=== PATIENT | female | born 1945 | race African-American/Black ===

== ENCOUNTER 2021-04-12 10:53 | Outpatient (CLI) | payer MEDICARE, SELFPAY | END 2021-04-12 10:54 | disposition home or self-care (01) | PROVIDERS: Visit Provider Obstetrics & Gynecology | DX: E04.9 Nontoxic goiter, unspecified (principal) | CPT/HCPCS: 36415; 84436; 84443 ==

== ENCOUNTER → 2021-04-15 14:11 | Outpatient (CLI) | payer MEDICARE, SELFPAY ==
--- NOTE | ~2021-04-15 | US_ITS ---
EXAMINATION: US thyroid DATE: 04/15/2021 14:30 INDICATION: Nontoxic goiter, unspecified. TECHNIQUE: Multiple ultrasound images of the thyroid were obtained. COMPARISON: None. FINDINGS: The right thyroid lobe measures 6.2 x 2.4 x 2.9 cm. The left thyroid lobe measures 5.5 x 1.7 x 1.7 c m. There are multiple nodules in the thyroid. In the right thyroid lobe, there is a 2.1 cm solid, is oechoic, lieaw-iluj-bswq nodule with ill-defined margin without echogenic foci (TI-RADS TR3). In the right thyroid lobe, there is a 1.9 cm predominance solid, hypoechoic, atjdr-fhgz-flmf nodule with ill -defined margin without echogenic foci (TR4). In the right thyroid lobe, there is a 2.4 cm solid, hyp oechoic, qvnrn-muzv-cfos nodule with ill-defined margin without echogenic foci (TR4). In the thyroid isthmus, there is a 1.4 cm solid, hypoechoic, fsaeq-oweb-fmdx nodule with ill-defined margin without echogenic foci (TR4). In the thyroid isthmus, there is a 1.5 cm solid, hypoechoic, xlfvl-zlid-hitr no dule with ill-defined margin without echogenic foci (TR4). IMPRESSION: 1. Multinodular goiter. Given the history of multiple benign biopsies, additional biopsies may not be warranted. Comparison with previous imaging is recommended. Reviewed, dictated and finalized at location A. IMPRESSION: 1. Multinodular goiter. Given the history of multiple benign biopsies, addition al biopsies may not be warranted. Comparison with previous imaging is recommend ed.
== END ==
PROVIDERS: Visit Provider Obstetrics & Gynecology
DX: E04.2 Nontoxic multinodular goiter (principal)
CPT/HCPCS: 76536

== ENCOUNTER → 2021-07-09 12:59 | Outpatient (CLI) | payer MEDICARE, SELFPAY ==
--- NOTE | ~2021-07-09 | DEXA_ITS ---
Bone Density Report Name: KASSI ARRINGTON Age: 76 Sex: Female Ethnicity: Black Date of : 1945 Indication: postmenopausal; screening for osteoporosis; Referring Provider: SAV CERVANTES Study: Bone densitometry was performed. Exam Date: July 09, 2021 Accession number: [id number] Bone Density: Region BMD T-score Z-score Classification AP Spine (L1-L4) 0.996 -0.5 1.2 Normal Femoral Neck (Left) 0.703 -1.3 -0.2 Osteopenia Total Hip (Left) 0.787 -1.3 -0.3 Osteopenia Femoral Neck (Right) 0.640 -1.9 -0.6 Osteopenia Total Hip (Right) 0.747 -1.6 -0.6 Osteopenia Total Hip Mean 0.767 -1.5 -0.5 Osteopenia World Health Organization criteria for BMD impression classify patients as: Normal (T-score at or above -1.0), Osteopenia (T-score between -1.0 and -2.5), or Osteoporosis (T-score at or below -2.5). 10-year Fracture Risk(1): Major Osteoporotic Fracture 12% Hip Fracture 2.8% Reported Risk Factors: [place] (), Neck BMD=0.640, BMI=26.0 (1) FRAX(R) Version 3.08. Fracture probability calculated for an untreated patient. Fracture probability may be lower if the patient has received treatment. Clinical Information Provided by Patient: Patient maximum height was 64.0 Menopause Age: 57 No regular weight bearing exercise Drinks caffeinated beverages Onset of menses at age 18 Number of children 2 Impression: The patient has low bone mass, based on the Right Femoral Neck T-score. The patient has an estimated ten-year risk of hip fracture of 2.8% and an estimated ten-year risk of major fracture of 12%, based on the WHO FRAX algorithm. Discussion: BONE DENSITY IS LOW AT ONE OR MORE SKELETAL SITES. This patient's lowest T-score is low at one or more skeletal sites. It meets the World Health Organization's (WHO) criteria for ?low bone mass? (T-score between -1.0 and -2.5). The patient's 10-year risk of fracture as calculated by FRAX is less than the threshold where pharmacological therapy is recommended by the National Osteoporosis Foundation (NOF). However, all treatment decisions require clinical judgment and consideration of individual patient factors, including patient preferences, comorbidities, previous drug use, risk factors not captured in the FRAX model (e.g., frailty, falls, vitamin D deficiency, increased bone turnover, interval significant decline in bone density) and possible under or overestimation of fracture risk by FRAX. The patient should follow a healthful lifestyle (good nutrition with adequate calcium and vitamin D, and appropriate weight-bearing exercise). Follow-Up: Consider repeating this study in 2 to 3 years to reassess this patient's status, or sooner if there is some new clinical indication. Reported by: CASEY on 07/09/2021 1:30:00 PM.
== END ==
PROVIDERS: Visit Provider Obstetrics & Gynecology
DX: Z78.0 Asymptomatic menopausal state (principal); M85.852 Other specified disorders of bone density and structure, left thigh; M85.851 Other specified disorders of bone density and structure, right thigh
CPT/HCPCS: 77080

== ENCOUNTER → 2021-10-25 09:47 | Outpatient (CLI) | payer MEDICARE, SELFPAY ==
--- NOTE | ~2021-10-25 | MM_ITS ---
EXAMINATION: MM diagnostic sandhya BI w isael HISTORY: Breast pain TECHNIQUE: Additional 3-D tomosynthesis images of the breasts were performed and synthetic 2-D images were generated. CAD analysis was submitted and interpreted. COMPARISON: None BREAST PARENCHYMAL COMPOSITION: The breasts are heterogenously dense, which may obscure small masses FINDINGS: There are no suspicious masses, calcifications or architectural distortion in either breast to suggest malignancy. There are benign vascular calcifications. IMPRESSION: 1. No mammographic evidence for malignancy in either breast. 2. Routine yearly screening mammogram and regular clinical breast examination are recommended. BI-RADS Category 1: Negative Reviewed, dictated and finalized at location A. IMPRESSION: 1. No mammographic evidence for malignancy in either breast. 2. Routine yearly screening mammogram and regular clinical breast examination a re recommended. BI-RADS Category 1: Negative
== END ==
PROVIDERS: PCP Obstetrics & Gynecology; Visit Provider Obstetrics & Gynecology
DX: N64.4 Mastodynia (principal)
CPT/HCPCS: 77062; 77066; G0279

== ENCOUNTER 2022-01-06 01:39 | Day surgery (SDC) | payer MEDICARE, SELFPAY ==
--- NOTE | 2022-01-06 10:43 | WPDANESEPPF ---
Anes - Initial Pre Proc Eval Procedure: Operation Date: 01/06/22 13:30 Proposed Procedures p Screening Colonoscopy - Joe Saxena MD Date/Time: 01/06/22 10:43 Surgeon: Joe Saxena MD Pre Op Diagnosis: neoplasm screening Patient Data Age: 76 Gender: F Height: Weight: Allergies Allergy/AdvReac Type Severity Reaction Status Date / Time Pwqyyhf-DYU-KfR Reductase Allergy Mild epistaxis Verified 01/06/22 11:48 Inhibitor [Qdxogtn-Pby-Qfv Reductase Inhibitor] Home Medications Medication Instructions Recorded Confirmed Type calcium carbonate 600 mg-vitamin 1 tablet PO DAILY 03/21/21 01/06/22 History D3 20 mcg (800 unit) chewable tablet (Caltrate 600 plus D) dupilumab 300 mg/2 mL subcutaneous 300 mg subcut ONCE 03/21/21 01/06/22 History pen injector (Dupixent) hydrocortisone 2.5 % topical cream 1 applic topical BID PRN Dry Skin 03/21/21 01/06/22 History nebivolol 5 mg tablet (Bystolic) 5 mg PO DAILY 03/21/21 01/06/22 History triamcinolone acetonide 0.1 % 1 applic topical DAILY 03/21/21 01/06/22 History topical ointment triamterene 37.5 1 tablet PO QAM 03/21/21 01/06/22 History mg-hydrochlorothiazide 25 mg tablet (Maxzide-25mg) Centrum Silver Ultra Women's 1 tablet BYMOUTH DAILY 12/19/21 01/06/22 History alirocumab 75 mg/mL subcutaneous 75 mg subcut DIRECTED 12/19/21 01/06/22 History pen injector (Praluent Pen) aspirin 81 mg BYMOUTH DAILY 12/19/21 01/06/22 History ezetimibe 10 mg tablet (Zetia) 10 tablet PO DAILY 12/19/21 01/06/22 History lisinopril 10 mg tablet (Zestril) 10 tablet PO HS 12/19/21 01/06/22 History Patient hx anesthesia problems: none Family hx anesthesia problems: none Results Review: All pre-operative results and documents have been reviewed as part of the pre-operative evaluation. [facility] Past Medical History Medical History Acid reflux Allergies Anxiety Bilateral carotid artery stenosis Diverticulosis History of HPV infection Hypertension Thyroid disorder Surgical History Surgical History Hx of tubal ligation Family History Family History Mother Breast cancer Sibling Hypertension Social History Social History Smoking status: Former smoker Alcohol intake: never Substance use: never Substance use type: does not use Living arrangements: with family Spiritual care concerns: No Anes - Eval Final PreProcedure Day of Procedure 01/06/22 10:43 Patient weight: overweight Heart: regular rate and rhythm Lungs: clear to auscultation Airway: Mallampati scale class II Neurological: alert and oriented Last oral intake: >/= 8 hours ASA classification: III Emergent: no Anesthetic plan: proceed Anesthesia type and monitoring: general GIVS and standard monitoring Results Review: All pre-operative results and documents have been reviewed as part of the pre-operative evaluation. Informed Consent: The patient's anesthetic plan and its attendant risks and benefits were discussed with the patient/family/POA. Questions were solicited and answers provided to the satisfaction of the patient/family/POA.
[2022-01-06 11:48] VITALS: BMI 24.4
[2022-01-06 11:49] VITALS: BP 176/64; PULSE 65; RESP 18; TEMP 36.2; O2SAT 100
[2022-01-06] MEDS: LACTATED RINGERS 1,000 ML 150 ML IV CONT (11:51)
--- NOTE | 2022-01-06 12:24 | PM.HPGS ---
History of Present Illness History of Present Illness Consent: Risks, benefits, and alternatives have been discussed and questions answered. Patient agrees to proceed with procedure. Chief complaint: neoplasm screening Narrative: Clarice Cross is a 76 year old female here for screening colonoscopy, last one about 6 years ago. Also few months ago with anal discomfort probably tear Review of Systems Constitutional: Constitutional: Denies headache(s) and Denies weakness Eyes: Eyes: Denies blurry vision ENT: Reports Normal hearing present, Denies headache(s) and Denies neck pain Cardiovascular: Cardiovascular: Denies chest pain and Denies dyspnea Respiratory: Respiratory: Denies dyspnea Gastrointestinal: Gastrointestinal: Reports no additional gastrointestinal complaints Genitourinary: Genitourinary: Denies dysuria Musculoskeletal: Musculoskeletal: Denies neck pain Integumentary/Breasts: Skin/Breast: Denies dry skin Neurologic: Reports Normal hearing present, Denies headache(s) and Denies weakness Psychiatric: Psychiatric: Denies anxiety Endocrine: Endocrine: Denies change in body appearance Hematologic/Lymphatic: Hematologic/Lymphatic: Denies easy bleeding Allergic/Immunologic: Allergic/Immunologic: Denies urticaria PMFSH Past Medical History Medical History (Updated 01/06/22 @ 12:25 by Joe Saxena MD) Acid reflux Allergies Anxiety Bilateral carotid artery stenosis Colon cancer screening Diverticulosis History of HPV infection Hypertension Thyroid disorder Surgical History Surgical History Hx of tubal ligation Family History Family History Mother Breast cancer Sibling Hypertension Social History Social History Smoking status: Former smoker Alcohol intake: never Substance use: never Substance use type: does not use Living arrangements: with family Spiritual care concerns: No Meds Home Medications and Allergies Home Medications Medication Instructions Recorded Confirmed Type calcium carbonate 600 mg-vitamin 1 tablet PO DAILY 03/21/21 01/06/22 History D3 20 mcg (800 unit) chewable tablet (Caltrate 600 plus D) dupilumab 300 mg/2 mL subcutaneous 300 mg subcut ONCE 03/21/21 01/06/22 History pen injector (Dupixent) hydrocortisone 2.5 % topical cream 1 applic topical BID PRN Dry Skin 03/21/21 01/06/22 History nebivolol 5 mg tablet (Bystolic) 5 mg PO DAILY 03/21/21 01/06/22 History triamcinolone acetonide 0.1 % 1 applic topical DAILY 03/21/21 01/06/22 History topical ointment triamterene 37.5 1 tablet PO QAM 03/21/21 01/06/22 History mg-hydrochlorothiazide 25 mg tablet (Maxzide-25mg) Centrum Silver Ultra Women's 1 tablet BYMOUTH DAILY 12/19/21 01/06/22 History alirocumab 75 mg/mL subcutaneous 75 mg subcut DIRECTED 12/19/21 01/06/22 History pen injector (Praluent Pen) aspirin 81 mg BYMOUTH DAILY 12/19/21 01/06/22 History ezetimibe 10 mg tablet (Zetia) 10 tablet PO DAILY 12/19/21 01/06/22 History lisinopril 10 mg tablet (Zestril) 10 tablet PO HS 12/19/21 01/06/22 History Allergies Allergy/AdvReac Type Severity Reaction Status Date / Time Oofyzcy-NOG-BuV Reductase Allergy Mild epistaxis Verified 01/06/22 11:48 Inhibitor [Nvyzvrv-Sfh-Pqx Reductase Inhibitor] Vital Signs Vital Signs - 24 hr 01/06/22 11:49 Temperature 97.2 F L Pulse Rate 65 Respiratory Rate 18 Blood Pressure 176/64 H Pulse Oximetry 100 Oxygen Delivery Room Air Exam Const: General: comfortable and no acute distress HENMT: General nose exam: Normal nares present Eyes: General: appearance normal, both eyes and all related structures Neck: Neck: no JVD Resp: Auscultation: clear to auscultation bilaterally Cardio: Rate: regular rate Rhythm: regular rhythm
[2022-01-06 12:43] VITALS: BP 137/72; PULSE 64; RESP 18; O2SAT 100
[2022-01-06 12:53] VITALS: BP 105/72; PULSE 66; RESP 18; O2SAT 100
[2022-01-06 13:03] VITALS: BP 152/78; PULSE 58; RESP 18; O2SAT 100
== END 2022-01-06 13:20 | disposition home or self-care (01) ==
PROVIDERS: Referring Provider Obstetrics & Gynecology; Visit Provider Internal Medicine Gastroenterology
PROC: 0DJD8ZZ Inspection of Lower Intestinal Tract, Via Natural or Artificial Opening Endoscopic (ICD-10-PCS; CPT 45378; principal; 2022-01-06 13:30)
DX: Z12.11 Encounter for screening for malignant neoplasm of colon (principal); K57.30 Diverticulosis of large intestine without perforation or abscess without bleeding; K64.8 Other hemorrhoids; I10 Essential (primary) hypertension; K21.9 Gastro-esophageal reflux disease without esophagitis; F41.9 Anxiety disorder, unspecified; Z79.82 Long term (current) use of aspirin; Z87.891 Personal history of nicotine dependence
CPT/HCPCS: G0121; J2704; J7120

== ENCOUNTER → 2022-11-25 13:15 | Outpatient (CLI) | payer MEDICARE, SELFPAY ==
--- NOTE | ~2022-11-25 | MM_ITS ---
EXAMINATION: MM screening sandhya BI w isael HISTORY: Screening mammogram TECHNIQUE: Craniocaudal and mediolateral oblique 3-D tomosynthesis images were obtained and synthetic 2-D images were generated. CAD analysis was submitted and interpreted. COMPARISON: October 25, 2021 bilateral diagnostic mammogram BREAST PARENCHYMAL COMPOSITION: There are scattered areas of fibroglandular density. FINDINGS: Occasional bilateral benign arterial calcifications and right calcified microhematoma. Ther e is no evidence of suspicious mass, calcification, or architectural distortion to suggest malignancy in either breast. There has been no suspicious interval change. IMPRESSION: 1. No mammographic evidence of malignancy. 2. Recommend routine screening mammography in one year. BI-RADS Category 2: Benign finding(s). Reviewed, dictated and finalized at location A.
== END ==
PROVIDERS: PCP Obstetrics & Gynecology; Visit Provider Obstetrics & Gynecology
DX: Z12.31 Encounter for screening mammogram for malignant neoplasm of breast (principal)
CPT/HCPCS: 77063; 77067

== ENCOUNTER → 2023-03-05 14:03 | Outpatient (CLI) | payer MEDICARE, SELFPAY ==
--- NOTE | ~2023-03-05 | MMUS_ITS ---
EXAMINATION: MM diagnostic sandhya LT w isael, US breast LT limited HISTORY: Posterior upper outer quadrant left breast lump TECHNIQUE: Additional 3-D tomosynthesis images of the left breast were performed and synthetic 2-D im ages were generated. CAD analysis was submitted and interpreted. High resolution targeted left breast ultrasound examination at the area of clinical complaint was performed. COMPARISON: 11/25/2022 bilateral screening mammogram BREAST PARENCHYMAL COMPOSITION: There are scattered areas of fibroglandular density. FINDINGS: MAMMOGRAPHIC FINDINGS: No suspicious mass or architectural distortion, malignant calcification, skin thickening or retractio n or significant new or developing density is detected. ULTRASOUND: No suspicious mass or shadowing, cyst or other significant sonographic abnormality is noted at the ar ea of clinical complaint at 2:00 10 cm from nipple. IMPRESSION: 1. No mammographic or sonographic evidence of malignancy 2. Routine annual mammographic screening is recommended BI-RADS Category 1: Negative Reviewed, dictated and finalized at location A. IMPRESSION: 1. No mammographic or sonographic evidence of malignancy 2. Routine annual mammographic screening is recommended BI-RADS Category 1: Negative
== END ==
PROVIDERS: PCP Obstetrics & Gynecology; Visit Provider Registered Nurse
DX: N63.21 Unspecified lump in the left breast, upper outer quadrant (principal)
CPT/HCPCS: 76642; 77061; 77065; G0279

== ENCOUNTER 2023-12-21 13:38 | Outpatient (CLI) | payer MEDICARE, SELFPAY ==
--- NOTE | ~2023-12-21 | MM_ITS ---
EXAMINATION: MM screening [facility] BI w isael HISTORY: Screening mammogram TECHNIQUE: Craniocaudal and mediolateral oblique 3-D tomosynthesis images were obtained and synthetic 2-D images were generated. CAD analysis was submitted and interpreted. COMPARISON: 03/05/2023, 11/25/2022, 10/25/2021 BREAST PARENCHYMAL COMPOSITION:Not Dense. There are scattered areas of fibroglandular density. FINDINGS: No suspicious mass, calcification, or architectural distortion are identified in either jane ast to suggest malignancy. There has been no suspicious interval change. IMPRESSION: No mammographic evidence of malignancy. Recommend routine screening mammography in one year. BI-RADS Category 1: Negative Reviewed, dictated and finalized at location .
== END 2023-12-21 13:39 ==
PROVIDERS: PCP Obstetrics & Gynecology; Visit Provider Obstetrics & Gynecology
DX: Z12.31 Encounter for screening mammogram for malignant neoplasm of breast (principal)
CPT/HCPCS: 77063; 77067

== ENCOUNTER 2025-02-10 08:02 | Outpatient (CLI) | payer MEDICARE, SELFPAY ==
--- NOTE | ~2025-02-10 | MM_ITS ---
EXAMINATION: MM screening sandhya BI w isael HISTORY: Screening TECHNIQUE: Craniocaudal and mediolateral oblique 3-D tomosynthesis images were obtained and synthetic 2-D images were generated. CAD analysis was submitted and interpreted. COMPARISON: Comparison to multiple prior studies sequentially, with oldest reviewed study dated 10/25. BREAST PARENCHYMAL COMPOSITION: Not dense: There are scattered areas of fibroglandular density. FINDINGS: There is no evidence of suspicious mass, calcification, or architectural distortion to sugg est malignancy in either breast. There has been no suspicious interval change. IMPRESSION: 1. No mammographic evidence of malignancy. 2. Recommend routine screening mammography in one year. BI-RADS Category 1: Negative Reviewed, dictated and finalized at location A.
== END 2025-02-10 08:03 | disposition home or self-care (01) ==
LOC: MICIMG 08:03
PROVIDERS: PCP Obstetrics & Gynecology; Visit Provider Obstetrics & Gynecology
DX: Z12.31 Encounter for screening mammogram for malignant neoplasm of breast (principal)
CPT/HCPCS: 77063; 77067